=== PATIENT | female | born 1990 | race Caucasian/White ===

== ENCOUNTER 2022-07-13 19:07 | Inpatient (IN) ==
[2022-07-13 20:10] LABS: ABS Eosinophils 0.1 10^3/uL (0.0-0.5); ABS Lymphocytes 1.3 10^3/uL (1.0-4.8); ABS Monocytes 0.6 10^3/uL (0.0-0.9); ABS Neutrophils 7.6 10^3/uL (1.5-7.6); ABS Nucleated RBC 0.01 10^3/ul; Eosinophil % 1.1 %; Hematocrit 32.7 % (35-45); Hemoglobin 10.4 g/dL (11.5-14.3); Lymphocyte % 13.6 %; Mean Corpuscular Hgb Conc 31.9 g/dL (31-36); Mean Corpuscular Volume 78.4 fL (80-97); Mean Platelet Volume 8.2 fL (7.5-11.2); Nucleated Red Blood Cells % 0.1 /100 WBC (0.0-0.4); Platelet Count 254 10^3/uL (150-450); Red Blood Count 4.17 10^6/uL (3.63-4.92); Red Cell Distribution Width 18.3 % (12-17); White Blood Count 9.6 10^3/uL (3.8-11.8)
[2022-07-13] MEDS ORDERED: Lactated Ringers 1000 ml BAG 1,000 ML IV ONE (20:49)
[2022-07-13] MEDS ORDERED: Buffered Lidocaine 1% SYRIN 1 ml INTRADERM ONE (20:49)
[2022-07-13] MEDS ORDERED: Lactated Ringers 1000 ml BAG 1,000 ML IV SCH (21:00)
[2022-07-13] MEDS ORDERED: Vancomycin 1,000 MG in NS 0.9% 250 ml 250 ML IVPB SCH (21:00)
[2022-07-13 23:02] LABS: Urine Appearance Cloudy; Urine Bilirubin Negative (Negative); Urine Blood 3+ (Negative); Urine Color Yellow; Urine Glucose Negative (Negative); Urine Ketones 2+ (Negative); Urine Nitrite Negative (Negative); Urine Protein 1+(30 mg/dL) (Negative); Urine Specific Gravity 1.019 (1.002-1.030); Urine Urobilinogen Negative (Negative)
[2022-07-13] MEDS: Zonisamide 100 mg CAP (NF) PO SCH (23:07)
[2022-07-13 23:10] LABS: Urine Bacteria Absent (Absent); Urine Red Blood Cell Trace(0-2/hpf) (Absent); Urine Squamous Epithelial Cell Present (Absent); Urine White Blood Cell 1+(6-10/hpf) (Absent)
[2022-07-13 23:17] LABS: Urine Benzodiazepine Screen None Detected (None Detect); Urine Cannabinoids Screen None Detected (None Detect); Urine Opiates Screen None Detected (None Detect)
[2022-07-14] MEDS ORDERED: Oxytocin in LR 20,000 MILLI.UNIT/1,000 ML BAG IV ONE (02:45)
[2022-07-14] MEDS ORDERED: Glycerin ADULT 2.4 gm SUPP PR PRN (03:03)
[2022-07-14] MEDS ORDERED: Dibucaine 1% OINT 28.35 GM TUBE PR PRN (03:03)
[2022-07-14] MEDS ORDERED: Witch Hazel PAD JAR TOPICAL PRN (03:03)
[2022-07-14] MEDS ORDERED: Oxytocin in LR 20,000 MILLI.UNIT/1,000 ML BAG IV SCH (03:15)
[2022-07-14] MEDS ORDERED: Lactated Ringers 1000 ml BAG 1,000 ML IV SCH (04:00)
[2022-07-14 12:55] LABS: Chlamydia trachomatis NAA Negative (Negative); Neisseria gonorrhoeae (GC) NAA Negative (Negative)
[2022-07-14] MEDS: Zonisamide 100 mg CAP (NF) PO SCH (22:11)
[2022-07-15 07:25] LABS: ABS Basophils 0.1 10^3/uL (0.0-0.1); ABS Eosinophils 0.2 10^3/uL (0.0-0.5); ABS Lymphocytes 1.9 10^3/uL (1.0-4.8); ABS Monocytes 0.5 10^3/uL (0.0-0.9); ABS Neutrophils 3.7 10^3/uL (1.5-7.6); ABS Nucleated RBC 0.01 10^3/ul; Eosinophil % 2.8 %; Hematocrit 27.5 % (35-45); Hemoglobin 8.9 g/dL (11.5-14.3); Lymphocyte % 30.4 %; Mean Corpuscular Hgb Conc 32.4 g/dL (31-36); Mean Corpuscular Volume 77.4 fL (80-97); Mean Platelet Volume 7.9 fL (7.5-11.2); Nucleated Red Blood Cells % 0.1 /100 WBC (0.0-0.4); Platelet Count 209 10^3/uL (150-450); Red Blood Count 3.56 10^6/uL (3.63-4.92); Red Cell Distribution Width 18.1 % (12-17); White Blood Count 6.4 10^3/uL (3.8-11.8)
[2022-07-15] MEDS ORDERED: Varicella Virus Vaccine Live 0.5 ML VIAL SUBCUT ONE (13:24)
[2022-07-15] MEDS: Zonisamide 100 mg CAP (NF) PO SCH (21:33)
[2022-07-16 08:41] LABS: Amphetamine by LC-MS/MS, U Negative ng/mL (Cutoff: 25); MDA,Ecstasy metabolite LC-MS Negative ng/mL (Cutoff: 25); MDMA(Ecstasy)by LC-MS/MS,U Negative ng/mL (Cutoff: 25); Methamphetamine by LC-MS/MS, U Negative ng/mL (Cutoff: 25); Phentermine-by LC-MS/MS, U Negative ng/mL (Cutoff: 25); Pseudo/Ephedrine LC-MS/MS, U Present ng/mL (Cutoff: 25); Urine Amphetamines Interp Positive.
[2022-07-16 11:36] VITALS: BP 135/67
== END 2022-07-16 17:20 | disposition home or self-care (01) | DRG 806 ==
LOC: MCHOBOUT 19:07 → MCHOB 20:46
PROVIDERS: ADMIT Obstetrics & Gynecology; ATTEND Obstetrics & Gynecology